=== PATIENT | male | born 1960 | race Caucasian/White ===

== ENCOUNTER 2017-10-26 04:28 | Emergency (ER) | payer SELFPAY, OTHER ==
[2017-10-26] MEDS: KETOROLAC 30 MG INJ IV (06:35)
[2017-10-26 07:27] LABS: ADD MAN DIFF? NO
[2017-10-26 07:30] LABS: BASOPHIL # 0.1 10^3/ul (0.0-0.1); BASOPHILS % 0.3 % (0.0-2.0); EOSINOPHILS # 0.3 10^3/ul (0.0-0.5); EOSINOPHILS % 1.7 % (0.0-7.0); HEMOGLOBIN 14.6 g/dl (14.0-18.0); LYMPHOCYTES # 1.7 10^3/ul (0.8-2.9); LYMPHOCYTES % 11.2 % (15.0-51.0); MEAN CORPUSCULAR HEMOGLOBIN 28.8 pg (29.0-33.0); MEAN CORPUSCULAR VOLUME 84.8 fl (82.0-101.0); MEAN PLATELET VOLUME 9.7 fl (7.4-10.4); MONOCYTE # 1.1 10^3/ul (0.3-0.9); MONOCYTES % 7.4 % (0.0-11.0); NEUTROPHIL # 11.7 10^3/ul (1.6-7.5); NEUTROPHILS % 78.9 % (39.0-77.0); PLATELET COUNT 266 10^3/UL (140-415); RED BLOOD COUNT 5.07 10^6/ul (4.70-6.10); RED CELL DISTRIBUTION WIDTH 13.3 % (11.5-14.5)
[2017-10-26 07:30] LABS: WHITE BLOOD COUNT 14.8 10^3/ul (4.8-10.8)
[2017-10-26 07:50] LABS: ALANINE AMINOTRANSFERASE 41 IU/L (13-69); ALBUMIN/GLOBULIN RATIO 1.29; ALKALINE PHOSPHATASE 84 IU/L (42-121); ANION GAP 17 (8-16); ASPARTATE AMINO TRANSFERASE 24 IU/L (15-46); BILIRUBIN,INDIRECT 0.5 mg/dl (0-1.1); BILIRUBIN,TOTAL 0.5 mg/dl (0.2-1.3); BLOOD UREA NITROGEN 17 mg/dl (7-20); C-REACTIVE PROTEIN 4.1 mg/dl (0.0-0.9); CALCIUM 8.5 mg/dl (8.4-10.2); CARBON DIOXIDE 23 mmol/L (21-31); CHLORIDE 105 mmol/L (97-110); CREATININE 0.59 mg/dl (0.61-1.24); GLUCOSE 112 mg/dl (70-220); POTASSIUM 3.8 mmol/L (3.5-5.1); SODIUM 141 mmol/L (135-144); TOTAL PROTEIN 7.1 g/dl (6.1-8.1); URIC ACID 3.8 mg/dl (3.1-7.9)
[2017-10-26] MEDS: CEFTRIAXONE 1 GM/50 ML (PMX) 50 ML IVPB (09:29)
[2017-10-26 10:03] LABS: ERYTHROCYTE SEDIMENTATION RATE 8 mm/Hr (0-20)
== END 2017-10-26 10:26 | disposition home or self-care (01) ==
LOC: FTE 04:28
DX: M79.89 Other specified soft tissue disorders (principal)
CPT/HCPCS: 36415; 73130-LT; 80053; 84560; 85025; 85651; 86140; 87040; 96374; 99284-25